=== PATIENT | female | born 1995 | race Caucasian/White ===

== ENCOUNTER → 2024-06-27 | Outpatient (CLI) | payer BC ==
[2024-06-27 18:19] LABS: HEMATOCRIT 37.8 % (36.0-47.0); HEMOGLOBIN 13.2 g/dl (12.0-15.5); MEAN CORPUSCULAR HEMOGLOBIN 32.8 pg (27.0-33.0); MEAN CORPUSCULAR HGB CONC 34.9 g/dl (32.0-36.5); MEAN CORPUSCULAR VOLUME 93.8 fl (80.0-96.0); PLATELET COUNT, AUTOMATED 279 10^3/uL (150-450); RED BLOOD COUNT 4.03 10^6/uL (4.00-5.40)
[2024-06-27 18:35] LABS: HEMOGLOBIN A1c 4.7 % (4.0-6.0)
[2024-06-27 19:20] LABS: HIV 1&2 SCREEN NEGATIVE (NEGATIVE)
[2024-06-27 19:29] LABS: HEPATITIS C VIRUS ABY INDEX 0.04 INDEX (<0.8)
[2024-06-27 20:21] LABS: GC DNA AMPLIFICATION NEGATIVE (NEGATIVE)
== END ==
LOC: M PLALAB 15:48
PROVIDERS: ATTEND Obstetrics & Gynecology
DX: Z34.91 Encounter for supervision of normal pregnancy, unspecified, first trimester (principal)

== ENCOUNTER → 2024-08-05 | Outpatient (REF) | payer BC | LOC: M WUC 20:06 | PROVIDERS: ATTEND Physician Assistant | DX: J02.9 Acute pharyngitis, unspecified (principal) ==

== ENCOUNTER → 2024-08-14 | Outpatient (CLI) | payer BC | LOC: M RAD 12:32 | PROVIDERS: ATTEND Obstetrics & Gynecology | DX: Z34.02 Encounter for supervision of normal first pregnancy, second trimester (principal) ==

== ENCOUNTER → 2024-09-23 | Outpatient (CLI) | payer BC | LOC: M RAD 07:09 | PROVIDERS: ATTEND Obstetrics & Gynecology | DX: Z34.02 Encounter for supervision of normal first pregnancy, second trimester (principal) ==

== ENCOUNTER → 2024-09-25 | Outpatient (CLI) | payer BC ==
[2024-09-25 13:31] LABS: HEMATOCRIT 37.7 % (36.0-47.0); HEMOGLOBIN 12.4 g/dl (12.0-15.5); MEAN CORPUSCULAR HEMOGLOBIN 31.6 pg (27.0-33.0); MEAN CORPUSCULAR HGB CONC 32.9 g/dl (32.0-36.5); MEAN CORPUSCULAR VOLUME 95.9 fl (80.0-96.0); PLATELET COUNT, AUTOMATED 243 10^3/uL (150-450); RED BLOOD COUNT 3.93 10^6/uL (4.00-5.40); WHITE BLOOD COUNT 10.5 10^3/uL (4.0-10.0)
[2024-09-25 13:32] LABS: GLUCOSE CHALLENGE TEST 1 HOUR 103 MG/DL (LESS THAN 140)
[2024-09-25 14:07] LABS: HIV 1&2 SCREEN NEGATIVE (NEGATIVE)
[2024-09-25 14:15] LABS: HEPATITIS C VIRUS ABY INDEX 0.02 INDEX (<0.8)
[2024-09-25 14:50] LABS: GC DNA AMPLIFICATION NEGATIVE (NEGATIVE)
== END ==
LOC: M PLALAB 07:59
PROVIDERS: ATTEND Obstetrics & Gynecology
DX: Z34.02 Encounter for supervision of normal first pregnancy, second trimester (principal)

== ENCOUNTER → 2024-10-09 | Outpatient (CLI) | payer BC | LOC: M RAD 12:52 | PROVIDERS: ATTEND Nurse Practitioner Family | DX: Z34.02 Encounter for supervision of normal first pregnancy, second trimester (principal) ==

== ENCOUNTER → 2025-01-02 | Outpatient (CLI) | payer BC | LOC: M WHC 07:35 | PROVIDERS: ATTEND Nurse Practitioner Family | DX: O09.899 Supervision of other high risk pregnancies, unspecified trimester (principal); Z3A.00 Weeks of gestation of pregnancy not specified ==

== ENCOUNTER 2025-01-03 07:35 | Inpatient (IN) | payer BC ==
[~2025-01-03] VITALS: Ht 162.6 cm; Wt 72.7 kg
[2025-01-03] VITALS (17 sets, daily range): BP systolic 105–132; BP diastolic 53–87
[2025-01-03] MEDS ORDERED: HOME MED LIST COMPLETE! XX SCH (08:40)
[2025-01-03 09:03] LABS: HEMATOCRIT 32.8 % (36.0-47.0); HEMOGLOBIN 10.8 g/dl (12.0-15.5); MEAN CORPUSCULAR HEMOGLOBIN 30.2 pg (27.0-33.0); MEAN CORPUSCULAR HGB CONC 32.9 g/dl (32.0-36.5); MEAN CORPUSCULAR VOLUME 91.6 fl (80.0-96.0); PLATELET COUNT, AUTOMATED 201 10^3/uL (150-450); RED BLOOD COUNT 3.58 10^6/uL (4.00-5.40); WHITE BLOOD COUNT 7.9 10^3/uL (4.0-10.0)
[2025-01-03] MEDS: miSOPROStol 50MCG 1/2 TABLET PO SCH (09:20)
[2025-01-03 10:17] LABS: HEPATITIS C VIRUS ABY INDEX 0.03 INDEX (<0.8); HIV 1&2 SCREEN NEGATIVE (NEGATIVE)
[2025-01-04] VITALS (47 sets, daily range): BP systolic 90–124; BP diastolic 51–90
[2025-01-04] MEDS: ONDANSETRON 4MG 2ML VIAL IV PRN (11:27)
[2025-01-04] MEDS: LR 1,000 ML IV SCH (12:05)
[2025-01-04] MEDS: OXYTOCIN DRIP 30 UNITS in IV 1 EA IV SCH (12:31)
[2025-01-04] MEDS ORDERED: NALOXONE INJ 0.4MG/1ML VIAL IV PRN (13:00)
[2025-01-04] MEDS ORDERED: LR 500 ML IV PRN (13:00)
[2025-01-04] MEDS ORDERED: ONDANSETRON 4MG 2ML VIAL IV PRN (13:00)
[2025-01-04] MEDS ORDERED: EPIDURAL/PCA KEYS XX PRN (13:00)
[2025-01-04] MEDS ORDERED: diphenhydrAMINE 50MG/ML VIAL IV PRN (13:00)
[2025-01-04] MEDS: FENTANYL/ROPIVACAINE/NACL BAG 100 ML EPIDURAL SCH (13:39)
[2025-01-04] MEDS: ePHEDrine SULFATE 25 MG/5 ML(5MG/ML) SYRINGE IVP PRN (17:55)
[2025-01-05] VITALS (16 sets, daily range): BP systolic 90–122; BP diastolic 55–79; TEMP 99; O2SAT 96–99
[2025-01-05] MEDS ORDERED: ceFAZolin SOD 2 GM in IV 1 EA IV ONE (02:40)
[2025-01-05] MEDS ORDERED: BICITRA 30ML SOLN UDC PO ONE (02:50)
[2025-01-05] MEDS: AZITHROMYCIN INJ 500 MG, VIAL MATE ADAPTER 1 EACH in NS 250 ML IV ONE (02:52)
[2025-01-05] MEDS: BICITRA 30ML SOLN UDC PO ONE (02:52)
[2025-01-05] MEDS: ceFAZolin SOD 2 GM IV ONCE IV ONE (02:55)
[2025-01-05] MEDS ORDERED: KETOROLAC 30 MG/ML 1ML VIAL As Ordered ONE (03:16)
[2025-01-05] MEDS ORDERED: ACETAMINOPHEN 1000MG/100ML IV BAG As Ordered ONE (03:16)
[2025-01-05] MEDS ORDERED: ONDANSETRON 4MG 2ML VIAL As Ordered ONE (03:16)
[2025-01-05] MEDS ORDERED: OXYTOCIN 30UNITS IN 0.9% NaCl 500ML IV BAG As Ordered ONE (03:16)
[2025-01-05] MEDS ORDERED: MORPHINE PRES-FREE INJ 10 MG/10 ML VIAL As Ordered ONE (03:16)
[2025-01-05] MEDS ORDERED: LIDOCAINE 2% W/EPINEPHRINE 20ML VIAL **PRES FREE As Ordered ONE (03:16)
[2025-01-05] MEDS ORDERED: SODIUM BICARBONATE 8.4% INJ 50MEQ 50ML VIAL As Ordered ONE (03:16)
[2025-01-05] MEDS ORDERED: PHENYLephrine 500MCG 5ML (100MCG/ML) SYRINGE As Ordered ONE (03:16)
[2025-01-05] MEDS ORDERED: METOCLOPRAMIDE INJ 10MG/2ML VIAL As Ordered ONE (03:16)
[2025-01-05 03:37] LABS: CORD GAS ABE A -2.5; CORD GAS O2 SAT A 53.9 %; CORD GAS PCO2 A 47.1 mmHg; CORD GAS PH A 7.325 UNITS; CORD GAS SBC A 21.2 MMOL/L; CORD GAS TCO2 A 25.4 MMOL/L
[2025-01-05 03:39] LABS: CORD GAS ABE V -1.5; CORD GAS HCO3 V 22.8 MMOL/L; CORD GAS O2 SAT V 78.8 %; CORD GAS PCO2 V 37.5 mmHg; CORD GAS PH V 7.401 UNITS; CORD GAS PO2 V 31.9 mmHg; CORD GAS SBC V 22.7 MMOL/L; CORD GAS TCO2 V 23.9 MMOL/L
[2025-01-05] MEDS ORDERED: SIMETHICONE 80MG CHEW TAB PO PRN (04:10)
[2025-01-05] MEDS ORDERED: RHOGAM 300MCG (1500IU) INJ IM SCH (04:10)
[2025-01-05] MEDS ORDERED: METHYLERGONOVINE MALEATE 0.2MG/ML 1ML VIAL IM PRN (04:10)
[2025-01-05] MEDS ORDERED: ACETAMINOPHEN 500 MG TAB PO PRN (04:10)
[2025-01-05] MEDS: OXYTOCIN DRIP 30 UNITS in IV 1 EA IV SCH (04:10)
[2025-01-05] MEDS: KETOROLAC 30 MG/ML 1ML VIAL IV SCH (08:14)
[2025-01-05] MEDS: PRENATAL VITAMINS CHEWABLE TABLET PO SCH (09:00)
[2025-01-05] MEDS: DOCUSATE SODIUM 100MG CAPSULE PO SCH (09:00)
[2025-01-05] MEDS: ONDANSETRON 4MG 2ML VIAL IV ONE (10:19)
[2025-01-05] MEDS: LR 500 ML IV ONE ×2 (10:22→18:27)
[2025-01-05] MEDS ORDERED: ONDANSETRON 4MG 2ML VIAL IV PRN (11:20)
[2025-01-05] MEDS ORDERED: PERCOCET 5MG/325MG TAB PO PRN ×2 (11:20)
[2025-01-05] MEDS ORDERED: MOM 30ML SUSPENSION UDC PO PRN (11:20)
[2025-01-05] MEDS: LR 1,000 ML IV SCH (13:12)
[2025-01-05] MEDS: METOCLOPRAMIDE INJ 10MG/2ML VIAL IV PRN (14:18)
[2025-01-05] MEDS: LR IV ONE (14:45)
[2025-01-06 02:30] VITALS: BP 103/62; O2SAT 98
[2025-01-06] MEDS: IBUPROFEN 800 MG TAB PO SCH (05:22)
[2025-01-06 05:52] VITALS: BP 109/57; O2SAT 99
[2025-01-06 07:45] LABS: MEAN CORPUSCULAR HEMOGLOBIN 29.3 pg (27.0-33.0); MEAN CORPUSCULAR HGB CONC 32.1 g/dl (32.0-36.5); MEAN CORPUSCULAR VOLUME 91.4 fl (80.0-96.0); PLATELET COUNT, AUTOMATED 150 10^3/uL (150-450); RED BLOOD COUNT 2.32 10^6/uL (4.00-5.40); WHITE BLOOD COUNT 10.9 10^3/uL (4.0-10.0)
[2025-01-06 08:00] LABS: HEMOGLOBIN 6.8 g/dl (12.0-15.5)
[2025-01-06 08:01] LABS: HEMATOCRIT 21.2 % (36.0-47.0)
[2025-01-06 10:00] VITALS: BP 126/73; O2SAT 99
[2025-01-06] MEDS ORDERED: IBUPROFEN 800 MG TAB PO SCH (13:25)
[2025-01-06 14:00] VITALS: BP 122/75; O2SAT 100
[2025-01-06] MEDS ORDERED: ACETAMINOPHEN 325 MG TAB PO PRN (16:40)
[2025-01-06] MEDS ORDERED: oxyCODONE 5MG TAB PO PRN ×2 (16:40)
[2025-01-06 18:00] VITALS: BP 122/73; O2SAT 98
[2025-01-06] MEDS: ACETAMINOPHEN 500 MG TAB PO PRN (18:36)
[2025-01-06 22:00] VITALS: BP 113/75; O2SAT 99
[2025-01-07 02:00] VITALS: BP 108/67; O2SAT 100
[2025-01-07] MEDS: MEASLES,MUMPS,RUBELLA VACCINE INJ (MMR-II) SC.IMMUN ONE (07:38)
== END 2025-01-07 16:25 | disposition home or self-care (01) | DRG 540 ==
LOC: M LDI 07:35 → M OBS 01-05 06:02
PROVIDERS: ADMIT Obstetrics & Gynecology; ATTEND Obstetrics & Gynecology
PROC: 10D00Z1 Extraction of Products of Conception, Low, Open Approach (ICD-10-PCS; principal; 2025-01-03)
PROC: 3E0P7GC Introduction of Other Therapeutic Substance into Female Reproductive, Via Natural or Artificial Opening (ICD-10-PCS; 2025-01-03)
DX: O41.03X0 Oligohydramnios, third trimester, not applicable or unspecified (principal); O62.0 Primary inadequate contractions; Z3A.38 38 weeks gestation of pregnancy; Z37.0 Single live birth